=== PATIENT | male | born 1995 | race Caucasian/White ===

== ENCOUNTER 2022-03-14 15:11 | Emergency (ER) | payer MEDICAID ==
[~2022-03-14] VITALS: Ht 172.7 cm; Wt 81.6 kg
[2022-03-14 15:20] VITALS: BP_SYST 156
[2022-03-14] MEDS ORDERED: LORazepam 2 MG/ML VIAL IVP ONE ×2 (15:30→19:15)
[2022-03-14] MEDS ORDERED: NACL 0.9% 3,000 ML IV ONE (15:30)
[2022-03-14 15:53] LABS: BASOPHILS % (AUTO) 0.3 % (0.0-2.0); EOSINOPHILS % (AUTO) 0.2 % (0.0-4.0); HEMATOCRIT 42.8 % (36-54); HEMOGLOBIN 14.9 g/dL (14.0-18.0); LYMPHOCYTES # (AUTO) 1.4 K/uL (1.0-5.5); LYMPHOCYTES % (AUTO) 16.1 % (20.5-51.5); MEAN CORPUSCULAR HEMOGLOBIN 31 pg (27-31); MEAN CORPUSCULAR HGB CONC 35 % (32-36); MEAN CORPUSCULAR VOLUME 90 fL (79.0-98.0); MONOCYTES # (AUTO) 0.5 K/uL (0.0-1.0); NEUTROPHILS % (AUTO) 77.4 % (40.0-70.0); PLATELET COUNT (AUTO) 225 K/uL (130-430); RED BLOOD CELL COUNT(AUTO) 4.77 MIL/uL (4.2-6.2); RED CELL DISTRIBUTION WIDTH 13.4 % (9.0-15.0)
[2022-03-14 16:10] LABS: ANION GAP 15 (5-15); CALCIUM 9.2 mg/dL (8.4-11.0); CHLORIDE 95 mmol/L (98-107); CREATININE 0.95 mg/dL (0.55-1.30); GLUCOSE 102 mg/dL (70-99); UREA NITROGEN, BLOOD 8 mg/dL (8-21)
[2022-03-14 16:22] LABS: ALANINE AMINOTRANSFERASE 78 U/L (12-78); ALBUMIN 4.1 g/dL (3.4-4.8); ALCOHOL, BLOOD 5 mg/dL (<10); AMYLASE 63 U/L (0-100); ASPARTATE AMINOTRANSFERASE 79 U/L (10-37); LIPASE 158 U/L (73-393); TOTAL BILIRUBIN 0.8 mg/dL (0.0-1.0)
[2022-03-14] MEDS ORDERED: LORazepam 1 MG TABLET ONE (16:28)
[2022-03-14 16:33] LABS: GFR AFRICAN AMERICAN 123 mL/min (>90)
--- NOTE | 2022-03-14 16:44 | NUR ---
CRITICAL LAB VALUE:LACTIC ACID 9.2 NOTIFIED
[2022-03-14 16:54] LABS: ACETONE, SERUM NEGATIVE (NEGATIVE)
[2022-03-14] MEDS ORDERED: LORazepam 1 MG TABLET PO ONE (18:00)
--- NOTE | 2022-03-14 19:37 | NUR ---
Received report from ROLANDO Leyva; assuming care of patient at this time.
--- NOTE | 2022-03-14 19:38 | NUR ---
NAVARRO Montes at bedside.
--- NOTE | 2022-03-14 19:38 | NUR ---
Patient presents to ED from home with c/o seizure x1 today s/p ETOH withdrawl. Patient denies pain 0/10 at this time. Patient A/ox4, VSS, ambulatory, resp even and unlabored. Patient lying in bed with safety precautions in place and connected to monitor. Nad noted at this time.
[2022-03-14 20:47] VITALS: BP_SYST 164
--- NOTE | 2022-03-14 20:48 | NUR ---
Patient given written and verbal discharge instructions and verbalizes understanding. ER MD discussed with patient the results and treatment provided. Patient in stable condition. ID arm band removed. IV catheter removed intact and dressing applied, no active bleeding. Rx of Ativan given. Patient educated on pain management and to follow up with PMD. Pain Scale 0/10. Opportunity for questions provided and answered. Medication side effect fact sheet provided. Patient A/Ox4, VSS, resp even and unlabored. Patient in stable condition and accoompanied by father upon discharge.
== END 2022-03-14 20:48 | disposition home or self-care (01) ==
LOC: SED 15:11
DX: F10.231 Alcohol dependence with withdrawal delirium (principal); Y90.0 Blood alcohol level of less than 20 mg/100 ml
CPT/HCPCS: 99284; 96374; 70450; 96361; 80053; 82009; 82150; 83690; 85025; 36415; 76376; 83605; G0482; J2060; J7030